=== PATIENT | male | born 1975 | race Two or more races ===

== ENCOUNTER 2018-02-12 05:09 | Emergency (ER) | payer OTHER ==
[~2018-02-12] VITALS: Ht 162.6 cm; Wt 68.0 kg
[2018-02-12 05:12] VITALS: BP 136/67
[2018-02-12] MEDS ORDERED: ibuprofen tablet 400 MG TABLET PO ONE (05:20)
[2018-02-12] MEDS ORDERED: HYDROcodone/acetaminophen 5mg/325mg tablet PO ONE (05:20)
[2018-02-12] MEDS ORDERED: HYDR-3965 PO ×2 (05:49→06:23)
== END 2018-02-12 06:34 | disposition home or self-care (01) ==
LOC: ER 05:10
DX: S16.1XXA Strain of muscle, fascia and tendon at neck level, initial encounter (principal); M25.512 Pain in left shoulder; M25.562 Pain in left knee; Z79.899 Other long term (current) drug therapy; V59.9XXA Occupant (driver) (passenger) of pick-up truck or van injured in unspecified traffic accident, initial encounter; Y93.89 Activity, other specified; Y92.410 Unspecified street and highway as the place of occurrence of the external cause; Y99.8 Other external cause status
CPT/HCPCS: 72040; 72125; 73020; 99284

== ENCOUNTER → 2018-02-14 | Emergency (ER) | payer OTHER ==
[~2018-02-14] VITALS: Ht 162.6 cm; Wt 67.5 kg
[~2018-02-14] MED LIST: HYDR-3965 PO
[2018-02-14 11:02] VITALS: BP 166/82
== END | disposition home or self-care (01) ==
LOC: ER 11:01
DX: S70.11XD Contusion of right thigh, subsequent encounter (principal); S80.01XD Contusion of right knee, subsequent encounter; M79.602 Pain in left arm; Z79.899 Other long term (current) drug therapy; V29.60 Unspecified motorcycle rider injured in collision with unspecified motor vehicles in traffic accident
CPT/HCPCS: 99281